=== PATIENT | female | born 1940 ===

== ENCOUNTER 2019-02-06 15:56 | Emergency (ER) | payer OTHER ==
[~2019-02-06] VITALS: Ht 162.6 cm; Wt 63.5 kg
[2019-02-06] MEDS ORDERED: TOPROL XL50 M1 (16:13)
[2019-02-06] MEDS ORDERED: LISINOPRIL5 MG (16:13)
[2019-02-06] MEDS ORDERED: LIPITOR80 MG (16:14)
[2019-02-06] MEDS ORDERED: NORVASC5 MG (16:14)
[2019-02-06] MEDS ORDERED: NAMENDA10 MG (16:14)
[2019-02-06] MEDS ORDERED: ZOLOFT100 MG (16:14)
== END 2019-02-06 21:41 | disposition home or self-care (01) ==
LOC: ER 15:56
DX: K57.33 Diverticulitis of large intestine without perforation or abscess with bleeding (principal); R10.32 Left lower quadrant pain

== ENCOUNTER 2022-03-20 11:14 | Emergency (ER) | payer OTHER ==
[~2022-03-20] VITALS: Ht 157.5 cm; Wt 75.3 kg
[~2022-03-20 11:14] MED LIST: LIPITOR80 MG; LISINOPRIL5 MG; NAMENDA10 MG; NORVASC5 MG; TOPROL XL50 M1; ZOLOFT100 MG
== END 2022-03-20 15:34 | disposition home or self-care (01) ==
LOC: ER 11:14
DX: J98.8 Other specified respiratory disorders (principal); B97.89 Other viral agents as the cause of diseases classified elsewhere